=== PATIENT | female | born 1965 | race Caucasian/White ===

== ENCOUNTER 2019-12-13 08:36 | Outpatient (CLI) | payer OTHER ==
--- NOTE | 2019-12-13 13:44 | Mammography Report ---
BILATERAL DIGITAL SCREENING MAMMOGRAM 3D/2D: 12/13/2019 CLINICAL: Routine screening. Comparison is made to exams dated: 06/13/2018 mammogram, 06/09/2017 mammogram, 06/04/2016 mammogram, 04/13 mammogram, 03/02/2014 ultrasound, and 03/02/2014 mammogram - [facility]. There are scattered fibroglandular elements in both breasts. No significant masses, calcifications, or other findings are seen in either breast. There has been no significant interval change. IMPRESSION: NEGATIVE There is no mammographic evidence of malignancy. A 1 year screening mammogram is recommended. This exam was interpreted at Station ID: [id number]. NOTE: For mammograms, a report in lay terms will be sent to the patient. Approximately 15% of breast malignancies will not be visualized mammographically. In the management of a palpable breast mass, a negative mammogram must not discourage biopsy of a clinically suspicious lesion. Electronically Signed By: Abigail [email or web address]:12/13/2019 11:36:46 ACR BI-RADS Category 1: Negative 3341F PARENCHYMAL PATTERN: (A) - The breast(s) demonstrate(s) scattered fibroglandular densities. BI-RADS CATEGORY: (1) - 1 RECOMMENDATION: (ANNUAL) - Recommend routine annual screening mammography. [id number] 1 year screening LATERALITY: (B)
== END 2019-12-13 08:37 | disposition home or self-care (01) ==
LOC: DI 08:36
DX: Z12.31 Encounter for screening mammogram for malignant neoplasm of breast (principal)
CPT/HCPCS: 77063; 77067